=== PATIENT | male | born 1970 | race Caucasian/White ===

== ENCOUNTER 2019-03-15 11:55 | Inpatient (IN) | payer OTHER, SELFPAY ==
[~2019-03-15] VITALS: Ht 182.9 cm; Wt 93.3 kg
--- NOTE | 2019-03-15 12:27 | NUR ---
TASK RN: FIRST CONTACT WITH PT. Pt resting on gurney. Pt's brother at bedside. Pt gives verbal consent for brother to be at bedside. Pt connected to vehicle monitor technician, NIBP, and continous pulse ox. Pt states, "my last drink was about an hour ago." Pt AOX4 and CIWA score is 1, next CIWA assessment is in next 4 hours. NADN. Pt requesting water. Both bedrails up for safety measures. Call light within reach. Pt denies cp, sob, n/v/d, tremors, headache.
[2019-03-15] MEDS ORDERED: THIAMINE 100MG TABLET PO ONE (12:30)
--- NOTE | 2019-03-15 12:59 | NUR ---
REPORT RECEIVED, CARE ASSUMED. IV STARTED, NS INFUSING ORDERED. PT DENIES N/V AT THIS TIME. NO W/D SYMPTOMS NOTED. PTS BROTHER AT BEDSIDE. PT TO RADIOLOGY VIA [facility].
[2019-03-15] MEDS ORDERED: SODIUM CHLORIDE FLUSH 10ML SYR IVF ONE (13:00)
[2019-03-15] MEDS ORDERED: ONDANSETRON 2MG/ML, 2ML IM ONE (13:00)
[2019-03-15] MEDS ORDERED: LORazepam 2 MG/ML, 1ML IVPush PRN (13:00)
[2019-03-15] MEDS ORDERED: SODIUM CHLORIDE 0.9% 1,000ML IVBOLUS ONE (13:00)
[2019-03-15] MEDS ORDERED: THIAMINE 100MG TABLET ONE (13:06)
[2019-03-15 13:22] LABS: BASOPHILS # (AUTO) 0.04 x10^3/uL (0-0.1); BASOPHILS % (AUTO) 1 % (0-1); EOSINOPHILS # (AUTO) 0.11 x10^3/uL (0-0.4); EOSINOPHILS % (AUTO) 2 % (1-7); LYMPHOCYTES # (AUTO) 1.79 x10^3/uL (1-3.4); LYMPHOCYTES % (AUTO) 27 % (22-44); MD NO; MEAN CORPUSCULAR HEMOGLOBIN 30.8 pg (27.5-34.5); MEAN CORPUSCULAR VOLUME 96.2 fL (81-97); MEAN PLATELET VOLUME 7.2 fL (7.4-10.4); MONOCYTES # (AUTO) 0.28 x10^3/uL (0.2-0.8); MONOCYTES % (AUTO) 4 % (2-9); NEUTROPHILS # (AUTO) 4.53 x10^3/uL (1.8-6.8); NEUTROPHILS % (AUTO) 67 % (42-75); PLATELET COUNT 191 x10^3/uL (130-400); RED BLOOD COUNT 4.57 x10^6/uL (4.38-5.82); RED CELL DISTRIBUTION WIDTH 13.9 % (9.4-14.8)
[2019-03-15 13:29] LABS: ALBUMIN 3.4 g/dL (3.4-5.0); ANION GAP 10 mmol/L (5-15); CHLORIDE 106 mmol/L (98-107)
[2019-03-15 13:34] LABS: ALANINE AMINOTRANSFERASE 77 U/L (12-78); ALKALINE PHOSPHATASE 107 U/L (45-117); BILIRUBIN,TOTAL 0.3 mg/dL (0.2-1.0); CREATININE 0.73 mg/dL (0.7-1.3)
--- NOTE | 2019-03-15 13:48 | NUR ---
PT RETURNED TO ROOM, PT USED URINAL. PT MEDICATED ORDERED. CONT TO DENY NAUSEA. SR PER MONITOR, AUTO BP AND PULSE OX IN PLACE. IV INFUSING WITHOUT REDNESS/SWELLING. NO OTHER NEEDS EXPRESSED AT THIS TIME. WAITING FOR FURTHER DISPOSITION.
[2019-03-15] MEDS ORDERED: SODIUM CHLORIDE 0.9% 1,000 ML IV ONE (13:59)
[2019-03-15] MEDS ORDERED: SODIUM CHLORIDE FLUSH 10ML SYR IVF PRN (14:00)
--- NOTE | 2019-03-15 14:18 | NUR ---
REPORT CALLED TO CARSON ULRICH DISCUSSED.
[2019-03-15] MEDS ORDERED: ACETAMINOPHEN 325 MG TABLET PO PRN (15:00)
[2019-03-15] MEDS ORDERED: GABAPENTIN 300 MG CAPSULE PO PRN (15:00)
[2019-03-15] MEDS ORDERED: TRAZODONE 50MG TABLET PO PRN (15:00)
[2019-03-15] MEDS ORDERED: ASA/APAP/ CAFFEINE TABLET PO PRN (15:00)
[2019-03-15] MEDS: ENOXAPARIN 40 MG/0.4 ML SQ SCH (15:00)
[2019-03-15] MEDS ORDERED: hydrALAzine 20 MG/ML, 1ML IVPush PRN (15:00)
[2019-03-15] MEDS ORDERED: LORazepam 1MG TABLET PO PRN ×4 (15:00)
[2019-03-15] MEDS ORDERED: KETOROLAC 30 MG/1 ML IV PRN (15:00)
[2019-03-15] MEDS ORDERED: LORazepam 0.5MG TABLET PO PRN (15:00)
[2019-03-15] MEDS ORDERED: LORazepam 2 MG/ML, 1ML IV PRN ×5 (15:00)
[2019-03-15] MEDS ORDERED: ONDANSETRON 2MG/ML, 2ML IVPush PRN (15:00)
[2019-03-15] MEDS: NICOTINE 14MG/24 HR PATCH.TD24 TD SCH (15:03)
[2019-03-15] MEDS ORDERED: THIAMINE 200 MG in DEXTROSE 5% 50 ML IVPB ONE (15:30)
[2019-03-15 16:13] VITALS: BP 116/83
[2019-03-15 19:21] VITALS: BP 130/81
[2019-03-16 02:17] VITALS: BP 163/98
[2019-03-16 05:39] LABS: BASOPHILS # (AUTO) 0.19 x10^3/uL (0-0.1); BASOPHILS % (AUTO) 2 % (0-1); EOSINOPHILS % (AUTO) 1 % (1-7); LYMPHOCYTES # (AUTO) 1.61 x10^3/uL (1-3.4); LYMPHOCYTES % (AUTO) 18 % (22-44); MD NO; MEAN CORPUSCULAR HEMOGLOBIN 32.2 pg (27.5-34.5); MEAN CORPUSCULAR HGB CONC 34.4 g/dL (33.2-36.2); MEAN CORPUSCULAR VOLUME 93.7 fL (81-97); MONOCYTES # (AUTO) 0.67 x10^3/uL (0.2-0.8); MONOCYTES % (AUTO) 8 % (2-9); NEUTROPHILS # (AUTO) 6.16 x10^3/uL (1.8-6.8); NEUTROPHILS % (AUTO) 71 % (42-75); PLATELET COUNT 158 x10^3/uL (130-400); RED BLOOD COUNT 4.26 x10^6/uL (4.38-5.82); RED CELL DISTRIBUTION WIDTH 13.9 % (9.4-14.8)
[2019-03-16 05:47] LABS: CHLORIDE 108 mmol/L (98-107)
[2019-03-16 05:56] LABS: ALANINE AMINOTRANSFERASE 67 U/L (12-78); ALBUMIN 3.2 g/dL (3.4-5.0); ALKALINE PHOSPHATASE 97 U/L (45-117); ANION GAP 4 mmol/L (5-15); BILIRUBIN,TOTAL 0.9 mg/dL (0.2-1.0); CALCIUM 7.7 mg/dL (8.5-10.1); CREATININE 0.77 mg/dL (0.7-1.3); TOTAL PROTEIN 6.6 g/dL (6.4-8.2)
[2019-03-16 07:16] VITALS: BP 171/114
[2019-03-16] MEDS: MULTIVITAMINS/MINERALS TABLET PO SCH (08:18)
[2019-03-16] MEDS ORDERED: ACETAMINOPHEN 325 MG TABLET PO PRN (08:30)
[2019-03-16 08:59] LABS: AMPHETAMINE SCREEN, URINE Negative (Negative); BARBITURATE SCREEN, URINE Negative (Negative); BENZODIAZEPINE SCREEN, URINE Negative (Negative); CANNABINOID SCREEN, URINE Positive (Negative); COCAINE SCREEN, URINE Negative (Negative); METHADONE SCREEN, URINE Negative (Negative); OPIATE SCREEN, URINE Negative (Negative)
[2019-03-16 13:05] VITALS: BP 178/113
[2019-03-16 14:20] VITALS: BP 151/92
[2019-03-16] MEDS: ENOXAPARIN 40 MG/0.4 ML SQ SCH (15:00)
[2019-03-16] MEDS: NICOTINE 14MG/24 HR PATCH.TD24 TD SCH (15:26)
[2019-03-16 19:28] VITALS: BP 142/99
[2019-03-17 01:49] VITALS: BP 165/92
[2019-03-17 08:05] VITALS: BP 166/104
[2019-03-17] MEDS: MULTIVITAMINS/MINERALS TABLET PO SCH (08:07)
[2019-03-17] MEDS: LISINOPRIL 10 MG TABLET PO SCH (08:07)
[2019-03-17] MEDS: AMLODIPINE 2.5 MG TABLET PO SCH (08:07)
[2019-03-17 10:59] VITALS: BP 135/90
[2019-03-17 13:35] VITALS: BP 120/80
[2019-03-17] MEDS: ENOXAPARIN 40 MG/0.4 ML SQ SCH (15:27)
[2019-03-17] MEDS: NICOTINE 14MG/24 HR PATCH.TD24 TD SCH (15:27)
[2019-03-17 18:50] VITALS: BP 121/79
[2019-03-18 00:52] VITALS: BP 128/82
[2019-03-18 07:00] VITALS: BP 130/91
[2019-03-18] MEDS: MULTIVITAMINS/MINERALS TABLET PO SCH (09:21)
[2019-03-18] MEDS: LISINOPRIL 10 MG TABLET PO SCH (09:22)
[2019-03-18] MEDS: AMLODIPINE 2.5 MG TABLET PO SCH (09:27)
[2019-03-18] MEDS ORDERED: NICO-486 TD (09:38)
[2019-03-18] MEDS ORDERED: AMLO2.5T5 PO (09:38)
[2019-03-18] MEDS ORDERED: LISI-167 PO (09:38)
[2019-03-20] MEDS ORDERED: IBUPROFEN 600 MG TABLET PO PRN (15:00)
== END 2019-03-18 13:16 | disposition home or self-care (01) | DRG 433 ==
LOC: ED 13:10 → EDIP 13:59 → 4WST 14:26
PROVIDERS: ADMIT Hospitalist; ATTEND Hospitalist
DX: K70.10 Alcoholic hepatitis without ascites (principal); F10.230 Alcohol dependence with withdrawal, uncomplicated; F10.220 Alcohol dependence with intoxication, uncomplicated; Y90.9 Presence of alcohol in blood, level not specified; I10 Essential (primary) hypertension; M10.9 Gout, unspecified; F19.10 Other psychoactive substance abuse, uncomplicated; R00.0 Tachycardia, unspecified; G47.00 Insomnia, unspecified; F12.90 Cannabis use, unspecified, uncomplicated; Z82.5 Family history of asthma and other chronic lower respiratory diseases
CPT/HCPCS: 36415; 71045; 72072; 80053; 80307; 83690; 83880; 85025; 93005; 96360; 99285; G0378; J1650; J3411; J7030